=== PATIENT | male | born 1975 | race Hispanic/Latino ===

== ENCOUNTER 2022-12-26 14:11 | Emergency (ER) | payer MEDICARE, OTHER ==
[~2022-12-26] VITALS: Ht 172.7 cm; Wt 86.2 kg
[2022-12-26] MEDS ORDERED: HYDROXYZINE 25 MG TABLET PO ONE (18:00)
[2022-12-26] MEDS ORDERED: DEXAMETHASONE SOD PHOSPHATE 4 MG/ML 1ML VIAL IM ONE (18:00)
[2022-12-26] MEDS ORDERED: HYDR50SY PO (18:02)
[2022-12-26] MEDS ORDERED: CETI10TA57 PO (18:02)
[2022-12-26 18:12] VITALS: BP 160/75; PULSE 62; RESP 18; O2SAT 99
[2022-12-26] MEDS ORDERED: HYDR-3422 PO (18:16)
== END 2022-12-26 18:14 | disposition home or self-care (01) ==
LOC: EDH 14:11
DX: T78.49XA Other allergy, initial encounter (principal); I10 Essential (primary) hypertension; Z79.899 Other long term (current) drug therapy; X58.XXXA Exposure to other specified factors, initial encounter
CPT/HCPCS: 99283; 96372; J1100